=== PATIENT | female | born 1955 | race Caucasian/White ===

== ENCOUNTER 2017-01-05 11:24 | Outpatient (CLI) | payer OTHER ==
[~2017-01-05 11:24] MED LIST: CHROMIUM PICO; CINNAMON500 MG PO; CIPROFLOXACIN750 MG PO; GLYBURIDE5 MG PO; HYDROMORPHONE HC2 MG PO; LOSARTAN POTASS25 MG PO; LOVASTATIN20 MG PO; METFORMIN HCL500 MG PO; PERCOCET1 TA4 PO
--- NOTE | 2017-01-05 12:37 | DIAGNOSTIC IMAGING REPORT ---
PROCEDURE: XR RIBS UNILAT W/PA CHEST-RT INDICATION: RIB PX ON RIGHT SIDE TECHNIQUE: Two views of the right ribs with single PA view chest. COMPARISON: None. FINDINGS: RIGHT RIBS: Cortical irregularity of the right eleventh rib suspicious for a nondisplaced acute fracture. CHEST: Lungs are clear. Heart size, mediastinum and pulmonary vessels are normal. IMPRESSION: 1. Right eleventh rib cortical irregularity suspicious for a nondisplaced fracture.
== END 2017-01-05 23:00 ==
LOC: XR SRH 11:24
DX: R07.81 Pleurodynia (principal); R93.7 Abnormal findings on diagnostic imaging of other parts of musculoskeletal system